=== PATIENT | male | born 1995 | race Caucasian/White ===

== ENCOUNTER 2016-07-20 16:37 | Emergency (ER) | payer OTHER ==
[~2016-07-20] VITALS: Ht 182.9 cm; Wt 94.3 kg
[2016-07-20 16:45] VITALS: TEMP 36.8; Ht 182.9 cm; Wt 94.3 kg
--- NOTE | 2016-07-20 17:36 | EMERGENCY ROOM VISIT NOTE ---
History First contact with patient: 16:50 Chief Complaint: DIZZY Stated Complaint: CONSTANT HOT FLASH, LIGHTHEADED Nursing Triage Summary: Pt c/o hot flashes and then feeling lightheaded History of Present Illness The patient is a 21 year old male who presents to the Emergency Room via private vehicle with complaints of "constant hot flash, light headed". The patient states that he feels as though he is constantly becoming overheated, and at times will randomly experienced lightheadedness. He states that the hot sensation developed Tuesday night, and he developed lightheadedness later in the evening throughout most of today. He states that he didn't initially have a headache which is now gone. He states that there is no specific incident or activity that causes his symptoms. He states that at times when the lightheadedness begins he will have to stand still. He denies any syncope. There is been no sudden in the family. He states that he does not feel ill. He denies any close contacts with similar symptoms. He denies any nausea , vomiting, chest pain, shortness of breath, neck pain, recent head injury, abdominal pain, urinary symptoms, diarrhea or constipation or having this before. He is not taking medications. He denies any illicit drug use other than marijuana. Review of Systems A complete 10-point Review of Systems was discussed with the patient, with pertinent positives and negatives listed in the History of Present Illness. All remaining Review of Systems questions can be considered negative unless otherwise specified. Past Medical/Surgical History Asthma, shoulder surgery, concussion Family History Heart disease, high blood pressure, cancer Social History Smoking Status: Former Smoker Housing Status: lives with family Occupation Status: employed Social History: Patient was at home with parents. Current/Historical Medications No Active Prescriptions or Reported Meds Allergies Coded Allergies: No Known Allergies (Unverified , 01/03/15) Physical Exam Vital Signs Date Time Temp Pulse Resp B/P Pulse Ox O2 Delivery O2 Flow Rate FiO2 07/20/16 22:12 66 16 163/103 97 Room Air 07/20/16 20:49 85 17 140/80 96 Room Air 82 144/103 61 144/106 07/20/16 20:30 76 07/20/16 20:26 79 16 149/104 97 Room Air 07/20/16 19:37 07/20/16 19:35 80 18 159/99 98 Room Air 161/116 164/112 07/20/16 18:38 85 18 170/97 99 Room Air 07/20/16 16:45 36.8 62 20 159/105 99 Room Air Physical Exam VITAL SIGNS - Vital signs and nursing notes were reviewed. Patient is afebrile , hypertensive at 159/105, non-tachycardic and is saturating well on room air at 99%. GENERAL -21-year-old male appearing his stated age who is in no acute distress. Communicates well with provider and answers questions appropriately. SKIN - Without rashes. No petechial rash. He is nondiaphoretic. HEAD - NC/AT. EYES - PERRL with EOMI bilaterally. Sclera anicteric. Palpebral conjunctiva pink and moist with no injection noted. EARS - No deformities of external structures noted on gross examination bilaterally. No pain elicited with palpation of the tragus bilaterally. External auditory canals without discharge or otorrhea. Tympanic membranes pearly warner without retraction or bulging. No fluid or purulent material visualized behind the TM. Handle of malleus, umbo, cone of light, pars tensa/ flaccid all easily visualized. NOSE - Midline and without cyanosis. No epistaxis or purulent drainage noted. Septum midline without deviation or septal hematoma noted. MOUTH/OROPHARYNX - Without perioral cyanosis. Buccal mucosa pink and moist and without leukoplakia. Tongue midline with equal elevation of palate bilaterally. No tonsillar hypertrophy, erythema, or exudates noted. Good dentition noted. NECK - Neck with FROM. Supple to palpation. No lymphadenopathy noted. No nuchal rigidity. LUNGS - Chest wall symmetric without accessory muscle use, intercostals retractions, or central cyanosis. Normal vesicular breath sounds CTA B/L. No wheezes, rales, or rhonchi appreciated. CARDIAC - RRR with S1/S2. No murmur, rubs, or gallops appreciated. ABDOMEN - Abdominal contour without pulsations or visible masses. BS normoactive all four quadrants. No tenderness, palpable masses, hepatosplenomegaly, or ascites noted. EXTREMITIES - No clubbing or peripheral cyanosis. No pretibial edema present. + 5/5 strength noted in UE/LE bilaterally. NEUROLOGIC - Cranial nerves II through XII grossly intact. PSYCH - Pt is very pleasant and interacts well with examiner. Medical Decision & Procedures ER Provider Diagnostic Interpretation: CT OF THE HEAD WITHOUT CONTRAST CLINICAL HISTORY: Hypertensive, hot flashes, dizziness COMPARISON STUDY: Head CT April 07, 2013. CT DOSE: 537.48 mGy.cm TECHNIQUE: Helical axial images of the head were obtained without IV contrast. Automated exposure control was utilized for the study. FINDINGS: No acute intracranial hemorrhage, midline shift or mass effect is present. Brain volume is normal. Ventricular system is normal. Basilar cisterns are patent. There are no extra-axial collections. Warner-white differentiation is preserved. There are no findings to suggest acute dural sinus thrombosis or acute territorial infarct. There are no calvarial abnormalities. Visualized portions of the sinuses and mastoid air cells are clear. IMPRESSION: No acute intracranial findings. Electronically signed by: Avi Cardenas M.D. 07/20/2016 9:06 PM Dictated Date/Time: 07/20/2016 9:04 PM Laboratory Results 07/20/16 17:25 Red Blood Count 5.30, Mean Corpuscular Volume 88.1, Mean Corpuscular Hemoglobin 30.4, Mean Corpuscular Hemoglobin Concent 34.5, Mean Platelet Volume 9.6, Neutrophils (%) (Auto) 66.4, Lymphocytes (%) (Auto) 26.7, Monocytes (%) (Auto) 5.6, Eosinophils (%) (Auto) 0.8, Basophils (%) (Auto) 0.4, Neutrophils # (Auto) 4.84, Lymphocytes # (Auto) 1.95, Monocytes # (Auto) 0.41, Eosinophils # (Auto) 0.06, Basophils # (Auto) 0.03 07/20/16 17:25 Test 07/20/16 17:25 07/20/16 17:46 White Blood Count 7.30 K/uL (4.8-10.8) Red Blood Count 5.30 M/uL (4.7-6.1) Hemoglobin 16.1 g/dL (14.0-18.0) Hematocrit 46.7 % (42-52) Mean Corpuscular Volume 88.1 fL (80-100) Mean Corpuscular Hemoglobin 30.4 pg (25-34) Mean Corpuscular Hemoglobin Concent 34.5 g/dl (32-36) Platelet Count 309 K/uL (130-400) Mean Platelet Volume 9.6 fL (7.4-10.4) Neutrophils (%) (Auto) 66.4 % Lymphocytes (%) (Auto) 26.7 % Monocytes (%) (Auto) 5.6 % Eosinophils (%) (Auto) 0.8 % Basophils (%) (Auto) 0.4 % Neutrophils # (Auto) 4.84 K/uL (1.4-6.5) Lymphocytes # (Auto) 1.95 K/uL (1.2-3.4) Monocytes # (Auto) 0.41 K/uL (0.11-0.59) Eosinophils # (Auto) 0.06 K/uL (0-0.5) Basophils # (Auto) 0.03 K/uL (0-0.2) RDW Standard Deviation 39.3 fL (36.4-46.3) RDW Coefficient of Variation 12.4 % (11.5-14.5) Immature Granulocyte % (Auto) 0.1 % Immature Granulocyte # (Auto) 0.01 K/uL (0.00-0.02) Anion Gap 5.0 mmol/L (3-11) Est Creatinine Clear Calc Drug Dose 116.1 ml/min Estimated GFR () 99.6 Estimated GFR (Non- 85.9 BUN/Creatinine Ratio 10.8 (10-20) Calcium Level 9.5 mg/dl (8.5-10.1) Magnesium Level 2.1 mg/dl (1.8-2.4) Total Bilirubin 0.5 mg/dl (0.2-1) Aspartate Amino Transf (AST/SGOT) 14 U/L (15-37) Alanine Aminotransferase (ALT/SGPT) 26 U/L (12-78) Alkaline Phosphatase 106 U/L (45-117) Troponin I < 0.015 ng/ml (0-0.045) Total Protein 8.2 gm/dl (6.4-8.2) Albumin 4.8 gm/dl (3.4-5.0) Globulin 3.4 gm/dl (2.5-4.0) Albumin/Globulin Ratio 1.4 (0.9-2) Thyroid Stimulating Hormone (TSH) 2.210 uIu/ml (0.300-4.500) Lyme Disease IgG Antibody NEG (NEG) Lyme Disease IgM Antibody NEG (NEG) Urine Color YELLOW Urine Appearance CLEAR (CLEAR) Urine pH 6.5 (4.5-7.5) Urine Specific [place] 1.023 (1.000-1.030) Urine Protein NEG (NEG) Urine Glucose (UA) NEG (NEG) Urine Ketones TRACE (NEG) Urine Occult Blood NEG (NEG) Urine Nitrite NEG (NEG) Urine Bilirubin NEG (NEG) Urine Urobilinogen NEG (NEG) Urine Leukocyte Esterase SMALL (NEG) Urine WBC (Auto) 10-30 /hpf (0-5) Urine RBC (Auto) 0-4 /hpf (0-4) Urine Hyaline Casts (Auto) 1-5 /lpf (0-5) Urine Epithelial Cells (Auto) 20-30 /lpf (0-5) Urine Bacteria (Auto) NEG (NEG) Urine Opiates Screen NEG (NEG) Urine Methadone, Qualitative NEG (NEG) Urine Barbiturates NEG (NEG) Urine Phencyclidine (PCP) Level NEG (NEG) Ur Amphetamine/Methamphetamine NEG (NEG) MDMA (Ecstasy) Screen NEG (NEG) Urine Benzodiazepines Screen NEG (NEG) Urine Cocaine Metabolite NEG (NEG) Urine Marijuana (THC) POS (NEG) Medical Decision Patient was seen and evaluated as above. After obtaining a thorough history and physical examination IV access was initiated and the above workup was performed. EKG was initiated which reveals normal sinus rhythm, rate of 70 bpm without ectopy or ischemic change. There is concern for RSR prime. There is no ST segment elevation. This was a significant change compared to previous. There is also a noted right branch block. CBC unremarkable. CMP unremarkable except for AST low at 14. Troponin negative. TSH normal. Urine not indicative for UTI. Urine drug screen positive for marijuana. Lyme screen negative. I did discuss the case with my attending, subsequently was recommended to speak with the on-call program administrator. Senior Loan Officer recommended outpatient follow-up, but while he is here in the emergency department did recommend CT scan of the head. This was performed with results as above. Negative for acute process. Patient notes he does have a family doctor appointment tomorrow at [facility]. I recommended that he continue with this appointment with potential further workup for his high blood pressure and treatment. At this time believe he may be discharged in stable condition with close follow-up. He was educated upon worrisome symptoms which to return, had questions prior to discharge and was discharged home in good condition. I decided not suspect any emergent process, and it is possible the patient is experiencing high blood pressure, anxiety, among other nonemergent causes. In the evaluation and treatment this patient the following differential diagnoses entertained: Symptomatic hypertension, pheochromocytoma, renal artery stenosis, PE, ME, pneumothorax, anxiety, Lyme disease, drug-induced symptoms, among others. Impression Primary Impression: Dizziness Additional Impression: High blood pressure Departure Information Dispostion Home / Self-Care Condition GOOD Prescriptions No Active Prescriptions or Reported Meds Referrals Jaylen Randall MD (PCP) Patient Instructions [facility] Additional Instructions You were seen in the emergency Department for dizziness, lightheadedness and high blood pressure. Your blood pressure has been persistently elevated throughout the emergency department stay today. Your EKG does reveal slight abnormality as we discussed, with normal sinus rhythm. We have consult a program administrator today. We spoke with Dr. Hyatt. It is recommended to keep your appointment tomorrow with her family doctor, at [facility] and discussed her blood pressure as well as further workup regarding your symptoms. Please return to the emergency department with any new/concerning symptoms. Problem Qualifiers
[2016-07-20 17:40] LABS: BASO % 0.4 %; BASO ABS # 0.03 K/uL (0-0.2); COMPLETE YES; EOS % 0.8 %; HEMATOCRIT 46.7 % (42-52); IG% 0.1 %; LYMPH % 26.7 %; LYMPH ABS # 1.95 K/uL (1.2-3.4); MEAN CELL VOLUME 88.1 fL (80-100); MEAN CORPUSCULAR HEMOGLOBIN 30.4 pg (25-34); MEAN CORPUSCULAR HGB CONC 34.5 g/dl (32-36); MEAN PLATELET VOLUME 9.6 fL (7.4-10.4); MONO % 5.6 %; NEUT % 66.4 %; PLATELET COUNT 309 K/uL (130-400)
[2016-07-20 17:57] LABS: ALT/SGPT 26 U/L (12-78); AST/SGOT 14 U/L (15-37); BLOOD UREA NITROGEN 13 mg/dl (7-18); BUN/CREATININE RATIO 10.8 (10-20); CALCIUM 9.5 mg/dl (8.5-10.1); CARBON DIOXIDE 32 mmol/L (21-32); CHLORIDE 106 mmol/L (98-107); GLUCOSE 85 mg/dl (70-99); MAGNESIUM 2.1 mg/dl (1.8-2.4); POTASSIUM 4.1 mmol/L (3.5-5.1); SODIUM 143 mmol/L (136-145)
[2016-07-20 18:03] LABS: URINE APPEARANCE CLEAR (CLEAR); URINE BILIRUBIN NEG (NEG); URINE COLOR YELLOW; URINE EPITHELIAL CELL AUTO 20-30 /lpf (0-5); URINE NITRITE NEG (NEG); URINE PH 6.5 (4.5-7.5); URINE SPECIFIC GRAVITY 1.023 (1.000-1.030); UROBILINOGEN NEG (NEG); ZZUR CULT IF INDIC CLEAN CATCH YES
[2016-07-20 18:04] LABS: MANUAL MICROSCOPIC REQUIRED? NO; REVIEW REQ? NO
[2016-07-20 18:08] LABS: ALB/GLOB RATIO 1.4 (0.9-2); ALKALINE PHOSPHATASE 106 U/L (45-117)
[2016-07-20 18:27] LABS: BENZODIAZEPINE, URINE NEG (NEG); COCAINE,URINE NEG (NEG); PHENCYCLIDINE, URINE NEG (NEG)
--- NOTE | 2016-07-20 21:07 | DIAGNOSTIC IMAGING REPORT ---
CT OF THE HEAD WITHOUT CONTRAST CLINICAL HISTORY: Hypertensive, hot flashes, dizziness COMPARISON STUDY: Head CT April 07, 2013. CT DOSE: 537.48 mGy.cm TECHNIQUE: Helical axial images of the head were obtained without IV contrast. Automated exposure control was utilized for the study. FINDINGS: No acute intracranial hemorrhage, midline shift or mass effect is present. Brain volume is normal. Ventricular system is normal. Basilar cisterns are patent. There are no extra-axial collections. Warner-white differentiation is preserved. There are no findings to suggest acute dural sinus thrombosis or acute territorial infarct. There are no calvarial abnormalities. Visualized portions of the sinuses and mastoid air cells are clear. IMPRESSION: No acute intracranial findings. Electronically signed by: Avi Cardenas M.D. 07/20/2016 9:06 PM Dictated Date/Time: 07/20/2016 9:04 PM
[2016-07-20 21:32] LABS: LYME DISEASE AB IGG NEG (NEG); LYME DISEASE AB IGM NEG (NEG)
[2016-07-20 22:12] VITALS: BP 163/103; PULSE 66; O2SAT 97
== END 2016-07-20 22:13 | disposition home or self-care (01) ==
LOC: C.EDB 16:39
DX: R42 Dizziness and giddiness (principal); I10 Essential (primary) hypertension; J45.909 Unspecified asthma, uncomplicated; Z82.49 Family history of ischemic heart disease and other diseases of the circulatory system; Z80.9 Family history of malignant neoplasm, unspecified; Z87.891 Personal history of nicotine dependence